=== PATIENT | female | born 2000 ===

== ENCOUNTER 2021-05-06 18:44 | Inpatient (IN) | payer OTHER ==
[~2021-05-06] VITALS: Ht 152.4 cm; Wt 81.6 kg
[2021-05-06] MEDS ORDERED: PRENATA CHEWAB1 EACH (18:48)
[2021-05-10] MEDS ORDERED: ACETAMINOPHEN-1 EAC2 PO (08:06)
[2021-05-10] MEDS ORDERED: IBUPROFEN600 MG PO (08:07)
[2021-05-10] MEDS ORDERED: DOCUSATE SODIU100 MG PO (08:07)
== END 2021-05-10 13:22 | disposition home or self-care (01) | DRG 788 ==
LOC: LDR 18:44 → OB/GYN 18:44 → O/R 18:44 → OB/GYN 05-07 15:16
PROVIDERS: ADMIT Obstetrics & Gynecology; ATTEND Obstetrics & Gynecology
PROC: 3E0P7VZ Introduction of Hormone into Female Reproductive, Via Natural or Artificial Opening (ICD-10-PCS; 2021-05-06)
PROC: 4A1HXFZ Monitoring of Products of Conception, Cardiac Rhythm, External Approach (ICD-10-PCS; 2021-05-06)
PROC: 10907ZC Drainage of Amniotic Fluid, Therapeutic from Products of Conception, Via Natural or Artificial Opening (ICD-10-PCS; 2021-05-07)
PROC: 3E033VJ Introduction of Other Hormone into Peripheral Vein, Percutaneous Approach (ICD-10-PCS; 2021-05-07)
PROC: 10D00Z1 Extraction of Products of Conception, Low, Open Approach (ICD-10-PCS; principal; 2021-05-07 12:15)
DX: O61.0 Failed medical induction of labor (principal); O82 Encounter for cesarean delivery without indication; Z3A.37 37 weeks gestation of pregnancy; Z37.0 Single live birth; Z20.822 Contact with and (suspected) exposure to COVID-19